=== PATIENT | male | born 1995 | race American Indian/Alaskan Native ===

== ENCOUNTER 2019-10-03 14:21 | Emergency (ER) | payer SELFPAY ==
[2019-10-03 14:26] VITALS: BP 144/98
== END 2019-10-03 17:30 | disposition left against medical advice (07) ==
LOC: ED 14:21
DX: M54.5 Low back pain (principal); Z53.21 Procedure and treatment not carried out due to patient leaving prior to being seen by health care provider

== ENCOUNTER 2019-10-04 09:36 | Emergency (ER) | payer BC ==
[2019-10-04 09:49] VITALS: BP 144/83
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
--- NOTE | 2019-10-04 12:33 | XRay Report ---
Cervical spine-3 views INDICATION: pain. COMPARISON: None. IMPRESSION: Normal alignment. Mild mid cervical discogenic DJD. No acute osseous or soft tissue ab normality. Signer Name: Vahid Simms MD Signed: 10/04/2019 12:28 PM Workstation Name: [id number]
--- NOTE | 2019-10-04 12:33 | XRay Report ---
LUMBAR SPINE 2 VIEWS INDICATION / CLINICAL INFORMATION: pain COMPARISON: None available. FINDINGS: BONES / JOINT(S): No acute fracture or subluxation. Mild levoconvex scoliosis with the apex at the mi d lumbar spine. No significant arthritis. SOFT TISSUES: No significant abnormality. ADDITIONAL FINDINGS: None. Signer Name: Oliver Hargrove MD Signed: 10/04/2019 12:28 PM Workstation Name: [id number]
== END 2019-10-04 17:19 | disposition home or self-care (01) ==
LOC: ED 09:36
DX: S16.1XXA Strain of muscle, fascia and tendon at neck level, initial encounter (principal); S39.012A Strain of muscle, fascia and tendon of lower back, initial encounter; Z79.899 Other long term (current) drug therapy; Z88.8 Allergy status to other drugs, medicaments and biological substances; V49.49XA Driver injured in collision with other motor vehicles in traffic accident, initial encounter; Y93.89 Activity, other specified; Y92.89 Other specified places as the place of occurrence of the external cause; Y99.8 Other external cause status
CPT/HCPCS: 72040; 72100